=== PATIENT | male | born 1950 | race Caucasian/White ===

== ENCOUNTER → 2024-10-26 15:12 | Outpatient (REF) | payer MEDICARE, BC, SELFPAY | LOC: RAD 15:12 | PROVIDERS: ATTENDING PHYSICIAN Specialist; FAMILY PHYSICIAN Family Medicine | DX: M75.121 Complete rotator cuff tear or rupture of right shoulder, not specified as traumatic (principal) | CPT/HCPCS: 73200 ==

== ENCOUNTER 2024-11-20 10:46 | Inpatient (IN) | payer MEDICARE, BC, SELFPAY ==
--- NOTE | 2024-11-05 13:00 | CM ---
Demographics: confirmed
Living situation: lives independently with .
Support Person Post Operatively:
History of
VN: yes, not currently on service
SNF: No
Outpatient: pending surgical clearance
Has patient purchased required equipment: N/A
PCP: Samina
Pharmacy: [facility]
Post Operative Discharge Plan: Home with family.
[2024-11-13 11:21] LABS: Hematocrit 39.3 % (39.0-52.0); Hemoglobin 12.1 g/dL (13.0-18.0); Mean Corp Hgb Conc. 30.8 g/dL (33.0-37.0); Mean Corpuscular Volume 84.7 fL (80.0-94.0); Platelet Count 230 10^3/uL (130-400); Red Cell Dist. Width 17.8 % (11.5-14.5)
--- NOTE | 2024-11-13 12:04 | CM ---
Addendum entered by Ruthann Romero RN 11/21/24 08:44:
Cm met with patient in room. Plan for patient to be discharge to home. No needs noted.
PLAN: Home no needs.
Original Note:
CM was updated that patient had insurance and billing questions. CM left message for patient.
[2024-11-13 12:08] LABS: ALT (SGPT) 27 U/L (0-50); AST (SGOT) 24 U/L (17-59); Albumin 4.3 g/dl (3.5-5.0); Alkaline Phosphatase 73 U/L (38-126); Blood Urea Nitrogen 25 mg/dl (9-20); Calcium 9.6 mg/dl (8.4-10.2); Carbon Dioxide 29 mmol/L (22-30); Chloride 104 mmol/L (98-107); Glucose 93 mg/dl (70-99); Potassium 4.8 mmol/L (3.5-5.1); Sodium 140 mmol/L (135-145); Total Protein 6.3 g/dl (6.3-8.2); eGFR > 60.00
[2024-11-13 13:54] LABS: Glycohemoglobin (HgbA1c) 5.6 % (4.0-5.6)
[2024-11-13 14:22] VITALS: BMI 21.1
[2024-11-13 17:14] VITALS: BMI 21.1
[2024-11-20] VITALS (18 sets, daily range): BP systolic 101–125; BP diastolic 47–102; PULSE 2–94; O2SAT 90; BMI 45.5
[2024-11-20] MEDS: TYLENOL 1000 MG PO (07:30)
[2024-11-20] MEDS: CELEBREX 200 MG PO (07:30)
[2024-11-20 07:57] LABS: Glucose - Point of Care 116 mg/dl (70-99)
[2024-11-20] MEDS: NORMOSOL-R/PLASMALYTE-A 1000 IV (07:58)
--- NOTE | 2024-11-20 10:34 | W.PN.UPDATE ---
Update Note
Progress Note Update
L shoulder OA w/ rotator cuff arthropathy s/p L Reverse TSA w/ Dr Hogue 11/20/24
DVT prophylaxis - ASA, b/l venous foot pumps
HTN - + parameters - monitor BP
PVCs - monitor on tele
- Continue BB
CHFpEF - reduce hourly IVF rate to prevent fluid overload
- Monitor daily weight, I&Os
- Low sodium diet
- Resume Spironolactone w/ SBP parameters to prevent post-surgical hypotension
COPD
ADA, noncompliant with CPAP
- Monitor O2
- IS
- Standing order Duonebs
- Prednisone taper to start tomorrow as long as BS tolerates
NIDDM, A1c 5.6 - monitor BS
- Add SSI AC, low dose Lantus to accommodate for potential post-surgical BS elevations
- Resume Mounjaro upon d/c
Degenerative disc disease with spinal stenosis - attempt to reduce daily Gabapentin dosing to avoid nephrotoxicity
Morbid obesity, BMI 45.5 - due to elevated BMI, would benefit from abx prophylaxis upon d/c
Hyperlipidemia
RLS
Renal cell adenocarcinoma, metastatic, s/p right nephrectomy, partial left nephrectomy and partial thyroidectomy
Depression
Anxiety
[2024-11-20 10:37] LABS: Glucose - Point of Care 126 mg/dl (70-99)
[2024-11-20] MEDS: DUONEB 3 ML INH ×2 (11:13→20:13)
[2024-11-20] MEDS: NOVOLOG FLEXPEN-MODERATE RESISTANCE SC (11:30)
[2024-11-20] MEDS: NSS 1000 IV (11:50)
[2024-11-20] MEDS: TYLENOL PO (12:00)
[2024-11-20] MEDS: SYNTHROID PO (13:00)
[2024-11-20] MEDS: APRESOLINE PO ×2 (13:00→21:37)
[2024-11-20] MEDS: ALDACTONE PO (15:00)
[2024-11-20 17:03] LABS: Glucose - Point of Care 154 mg/dl (70-99)
--- NOTE | 2024-11-20 17:33 | PTCARENOTE ---
pt admitted to 2S @1300 from PACU to room 2103. admission database and assessment completed as documented. telemetry placed and reading SR in 80's. pt and oriented to room , environment and plan of care with verbalized understanding. care
ongoing.
[2024-11-20] MEDS: ANCEF 5 IV ×2 (17:52→22:58)
[2024-11-20] MEDS: WELLBUTRIN XL (24 hour extended release) 300 MG PO (17:54)
[2024-11-20] MEDS: NEURONTIN 600 MG PO ×2 (17:54→21:38)
[2024-11-20] MEDS: OSCAL CAL 500 500 MG PO (17:54)
[2024-11-20] MEDS: ASPIRIN 325 MG PO (17:55)
[2024-11-20] MEDS: TYLENOL 650 MG PO ×3 (17:55→22:58)
[2024-11-20] MEDS: LIPITOR 20 MG PO (17:55)
[2024-11-20] MEDS: NOVOLOG FLEXPEN-MODERATE RESISTANCE 1 UNITS SC (18:48)
[2024-11-20] MEDS: COREG 6.25 MG PO (19:35)
[2024-11-20] MEDS: COLACE 100 MG PO (19:35)
[2024-11-20] MEDS: SENOKOT 17.2 MG PO (19:35)
[2024-11-20] MEDS: BACTROBAN 2% OINTMENT 1 APPLIC NASAL (19:36)
[2024-11-20] MEDS: PEPCID 20 MG PO (21:37)
[2024-11-20] MEDS: MELATONIN 10 MG PO (21:38)
[2024-11-20] MEDS: MIRAPEX, GENERIC 2 MG PO (21:38)
[2024-11-20] MEDS: CELEXA 40 MG PO (21:40)
[2024-11-20] MEDS: LANTUS 0.05 UNITS SC (22:58)
[2024-11-20 23:47] LABS: Glucose - Point of Care 148 mg/dl (70-99)
[2024-11-21] VITALS (11 sets, daily range): BP systolic 108–138; BP diastolic 56–83; PULSE 2–92; O2SAT 93; BMI 46.1
[2024-11-21] MEDS: TYLENOL PO (04:56)
[2024-11-21 06:22] LABS: Hemoglobin 10.7 g/dL (13.0-18.0)
[2024-11-21 07:14] LABS: Glucose - Point of Care 88 mg/dl (70-99)
[2024-11-21] MEDS: DUONEB 3 ML INH ×3 (07:15→20:04)
[2024-11-21] MEDS: NOVOLOG FLEXPEN-MODERATE RESISTANCE SC ×2 (08:56→12:39)
[2024-11-21] MEDS: ASPIRIN 325 MG PO (08:59)
[2024-11-21] MEDS: DELTASONE 40 MG PO (08:59)
[2024-11-21] MEDS: OSCAL CAL 500 500 MG PO (08:59)
[2024-11-21] MEDS: NEURONTIN 600 MG PO ×3 (08:59→20:48)
[2024-11-21] MEDS: WELLBUTRIN XL (24 hour extended release) 300 MG PO (08:59)
[2024-11-21] MEDS: APRESOLINE 50 MG PO (08:59)
[2024-11-21] MEDS: COREG 6.25 MG PO ×2 (09:00→20:31)
[2024-11-21] MEDS: ALDACTONE 50 MG PO (09:00)
[2024-11-21] MEDS: SENOKOT 17.2 MG PO ×2 (09:00→20:32)
[2024-11-21] MEDS: SYNTHROID 75 MCG PO (09:00)
[2024-11-21] MEDS: TYLENOL 650 MG PO ×4 (09:00→20:31)
[2024-11-21] MEDS: COLACE 100 MG PO ×2 (09:00→20:31)
[2024-11-21] MEDS: BACTROBAN 2% OINTMENT 1 APPLIC NASAL ×2 (09:01→20:33)
--- NOTE | 2024-11-21 10:41 | W.PN.ORTHO ---
Today's Communication / Plan
-
Monitor O2 and weight.
BMP in AM.
D/c when clinically stable.
Assessment
.
Distal Motor Intact: Yes
Dressing:
Clean, dry and intact.
Assessment:
L shoulder OA w/ rotator cuff arthropathy s/p L Reverse TSA w/ Dr Hogue 11/20/24
DVT prophylaxis - ASA, b/l venous foot pumps
Acute hypoxemia, likely multifactorial given GA and PMHx below
- Of note, pt asymptomatic. Lungs CTA b/l. No tachypnea. B/l LE w/ trace sockline edema
- Last assessment, pt 88-92% on room air
- Wean supplemental O2 as tolerated
- Continue IS. Assess SpO2 after IS and while standing
- Prednisone taper to aid in lung perfusion
- Standing order Duonebs
- Will continue BiPAP HS starting during admission for ADA
- Spironolactone given this AM. IV Lasix added due to possible acute CHF. Monitor renal function/lytes
- Minimize opioids as able
- Monitor on continuous pulse ox
HTN - + parameters - monitor BP
PVCs - monitor on tele
- Continue BB
CHFpEF - reduced hourly IVF rate to prevent fluid overload
- Daily weight up 2* holding Spironolactone yesterday d/t hypotension. Resumed today w/ additional IV Lasix. Weight also likely to improve when back on Mounjaro
- Low sodium diet
COPD
ADA, noncompliant with CPAP
- Continue to monitor O2
- IS
- Standing order Duonebs
- Prednisone taper to started today as BS readings stable
NIDDM, A1c 5.6 - monitor BS
- Add SSI AC, low dose Lantus to accommodate for potential post-surgical BS elevations
- Resume Mounjaro upon d/c
Degenerative disc disease with spinal stenosis - attempt to reduce daily Gabapentin dosing to avoid nephrotoxicity
Morbid obesity, BMI 45.5 - due to elevated BMI, would benefit from abx prophylaxis upon d/c
Hyperlipidemia
RLS
Renal cell adenocarcinoma, metastatic, s/p right nephrectomy, partial left nephrectomy and partial thyroidectomy
Depression
Anxiety
Plan
.
Surgery / Date: Neto BLOOD w/ Dr Hogue 11/20/24
DVT Prophylaxis: Aspirin
Activity:
Out of bed.
PT/OT
Discharge Plan: Home
Subjective
.
.:
Patient resting comfortably in his chair.
Acute hypoxemia, likely multifactorial given PMHx. Weaning supplemental O2 as tolerated.
Denies any other new significant complaints.
Vital Signs and Labs
.
Vital Signs and Labs:
Lab Results
11/21/24 06:00
Temp Pulse Resp BP Pulse Ox
98.1 F 83 24 138/78 93
11/21/24 08:15 11/21/24 08:15 11/21/24 08:15 11/21/24 08:15 11/21/24 08:15
Non-invasive Hgb result: 8.4
Physical Exam
-
HEENT: No pallor, cyanosis, or jaundice. Throat clear.
NECK: Supple. No JVD.
RESPIRATORY: Lungs clear to auscultation.
CVS: S1, S2 normal. RRR.�
ABDOMEN: Soft, non-tender. No distension. Morbidly obese.
EXTREMITIES: + LUE sling. Good industrial safety engineer, radial pulses b/l. Able to wiggle fingers b/l. Strength equal, no calf pain with palpation/dorsiflexion. Calves soft.
ELEVATED WORK PLATFORM OPERATOR: AOx3. No focal deficits. content architect grossly intact
[2024-11-21 11:04] LABS: Blood Urea Nitrogen 23 mg/dl (9-20); Calcium 9.1 mg/dl (8.4-10.2); Carbon Dioxide 31 mmol/L (22-30); Chloride 105 mmol/L (98-107); Estimated Creatinine Clearance 123 ml/min; Glucose 135 mg/dl (70-99); Magnesium 2.4 mg/dl (1.6-2.3); Potassium 5.2 mmol/L (3.5-5.1); Sodium 139 mmol/L (135-145); eGFR > 60.00
[2024-11-21 11:26] LABS: Glucose - Point of Care 133 mg/dl (70-99)
[2024-11-21] MEDS: DECADRON 4 MG IV ×2 (13:35→22:22)
[2024-11-21] MEDS: LASIX 40 MG IV (13:35)
[2024-11-21 16:47] LABS: Glucose - Point of Care 184 mg/dl (70-99)
[2024-11-21] MEDS: LIPITOR 20 MG PO (17:31)
[2024-11-21] MEDS: NOVOLOG FLEXPEN-MODERATE RESISTANCE 1 UNITS SC (17:31)
[2024-11-21] MEDS: APRESOLINE PO (20:27)
[2024-11-21] MEDS: CELEXA 40 MG PO (20:47)
[2024-11-21] MEDS: PEPCID 20 MG PO (20:47)
[2024-11-21] MEDS: MIRAPEX, GENERIC 2 MG PO (20:48)
[2024-11-21 21:25] LABS: Glucose - Point of Care 132 mg/dl (70-99)
[2024-11-21] MEDS: LANTUS 0.06 UNITS SC (22:21)
[2024-11-21] MEDS: MELATONIN 10 MG PO (22:43)
[2024-11-22] MEDS: TYLENOL PO ×2 (00:18→05:02)
[2024-11-22 03:00] VITALS: BP 150/69
[2024-11-22 03:48] VITALS: PULSE 2
[2024-11-22 06:00] VITALS: BMI 45.8
[2024-11-22 06:55] LABS: Blood Urea Nitrogen 24 mg/dl (9-20); Calcium 9.5 mg/dl (8.4-10.2); Carbon Dioxide 31 mmol/L (22-30); Chloride 102 mmol/L (98-107); Estimated Creatinine Clearance > 125 ml/min; Glucose 133 mg/dl (70-99); Magnesium 2.1 mg/dl (1.6-2.3); Potassium 5.1 mmol/L (3.5-5.1); Sodium 137 mmol/L (135-145); eGFR > 60.00
[2024-11-22 07:15] VITALS: BP 173/87
[2024-11-22] MEDS: DUONEB 3 ML INH (07:21)
[2024-11-22 07:23] LABS: Glucose - Point of Care 123 mg/dl (70-99)
[2024-11-22] MEDS: NOVOLOG FLEXPEN-MODERATE RESISTANCE SC ×2 (07:25→12:22)
[2024-11-22] MEDS: NEURONTIN 600 MG PO (08:25)
[2024-11-22] MEDS: SENOKOT 17.2 MG PO (08:26)
[2024-11-22] MEDS: ASPIRIN 325 MG PO (08:26)
[2024-11-22] MEDS: APRESOLINE 50 MG PO (08:26)
[2024-11-22] MEDS: OSCAL CAL 500 500 MG PO (08:26)
[2024-11-22] MEDS: WELLBUTRIN XL (24 hour extended release) 300 MG PO (08:26)
[2024-11-22] MEDS: COLACE 100 MG PO (08:26)
[2024-11-22] MEDS: TYLENOL 650 MG PO ×2 (08:27→12:19)
[2024-11-22] MEDS: ALDACTONE 50 MG PO (08:27)
[2024-11-22] MEDS: SYNTHROID 75 MCG PO (08:27)
[2024-11-22] MEDS: COREG 6.25 MG PO (08:27)
[2024-11-22] MEDS: LASIX 40 MG IV (08:28)
[2024-11-22] MEDS: DECADRON 4 MG IV (08:29)
[2024-11-22 11:16] VITALS: BP 123/66
--- NOTE | 2024-11-22 11:32 | W.PN.ORTHO ---
Today's Communication / Plan
-
D/c today since clinically stable.
Assessment
.
Distal Motor Intact: Yes
Dressing:
Clean, dry and intact.
Assessment:
L shoulder OA w/ rotator cuff arthropathy s/p L Reverse TSA w/ Dr Hogue 11/20/24
DVT prophylaxis - ASA, b/l venous foot pumps
Acute hypoxemia, likely multifactorial given GA and PMHx below - resolved by POD 2
- Of note, pt remains asymptomatic. Lungs CTA b/l. No tachypnea. B/l LE w/ trace sockline edema
- Supplemental O2 weaned as tolerated -> now 94-95% on RA.
- Continue IS. SpO2 assessed after IS and while standing
- Prednisone taper to aid in lung perfusion
- Standing order Duonebs during admission
- Advised continuing BiPAP/CPAP upon d/c. Patient has call out to PCP re: new mask for device.
- Spironolactone resumed POD 1. IV Lasix x2 added due to possible acute CHF. Renal function/lytes stable
- Continue to minimize opioids as able
HTN - + parameters - BP elevated this AM but was due for BP meds; expected to improve
PVCs - rhythm stable on tele
- Continue BB
CHFpEF - reduced hourly IVF rate to prevent fluid overload
- Daily weight up POD 1 2* holding Spironolactone DOS d/t hypotension. Resumed w/ additional IV Lasix. Weight showing drastic improvement by POD 2. Weight also likely to improve when back on Mounjaro
- Low sodium diet
COPD
ADA, noncompliant with CPAP
- IS
- Standing order Duonebs while here. Continue Ventolin HFA inhaler prn upon d/c
- Prednisone taper w/ transition back to home dosing. Of note, BS readings stable
NIDDM, A1c 5.6 - monitor BS
- Add SSI AC, low dose Lantus to accommodate for potential post-surgical BS elevations
- Resume Mounjaro upon d/c
Degenerative disc disease with spinal stenosis - attempt to reduce daily Gabapentin dosing to avoid nephrotoxicity
Morbid obesity, BMI 45.5 - due to elevated BMI, would benefit from abx prophylaxis upon d/c
Hyperlipidemia
RLS
Renal cell adenocarcinoma, metastatic, s/p right nephrectomy, partial left nephrectomy and partial thyroidectomy
Depression
Anxiety
Plan
.
Surgery / Date: L Reverse TSA w/ Dr Hogue 11/20/24
DVT Prophylaxis: Aspirin
Activity:
Out of bed.
PT/OT
Discharge Plan: Home
Subjective
.
.:
Patient resting comfortably in his chair.
L shoulder pain tolerable still w/ minimal pain meds.
Oxygen saturations improved. Denies any new complaints.
Eager for d/c today.
Vital Signs and Labs
.
Vital Signs and Labs:
Lab Results
11/21/24 06:00
11/22/24 05:31
Temp Pulse Resp BP Pulse Ox
97.5 F 73 16 123/66 94
11/22/24 11:16 11/22/24 11:16 11/22/24 11:16 11/22/24 11:16 11/22/24 11:16
Non-invasive Hgb result: 11
Physical Exam
-
HEENT: No pallor, cyanosis, or jaundice. Throat clear.
NECK: Supple. No JVD.
RESPIRATORY: Lungs clear to auscultation.
CVS: S1, S2 normal. RRR.�
ABDOMEN: Soft, non-tender. No distension.
EXTREMITIES: + LUE sling. Able to wiggle fingers b/l. Good patient portal concierge, radial pulses b/l. B/l LE strength equal, no calf pain with palpation/dorsiflexion. Calves soft.
VISUAL JOURNALIST: AOx3. No focal deficits. rehabilitation liaison grossly intact
--- NOTE | 2024-11-22 11:48 | W.DS.TRANS ---
DC Summary - Information Security Risk Analyst
-
Discharge Instructions:
Discharge Diagnosis/Procedures L shoulder OA with rotator cuff arthropathy s/p
L Reverse TSA w/ Dr Hogue 11/20/24
Diet Diabetic, Carb Controlled
Additional Diets Adequate hydration, minimize opioids, and wear
TEDs stockings to prevent low blood pressure/
dizziness.
Activity As tolerated
Additional Activity Non-weightbearing left upper extremity
Driving Restrictions Not until seen by your Dr
Bathing Restrictions OK to Shower
Wound Care Leave dressing on until seen by surgeon's office
for follow-up.
Specialty Instructions Weigh Daily
Instructions:
Stand-Alone Forms: SDS Total Shoulder D/C Inst.
Changes to Home Medications: Yes
Discharge Medications:
DC Medications w/original date entered in [employer]
albuterol sulfate 90 mcg/actuation aerosol inhaler (Ventolin HFA) 2 puff inhalation QID PRN sob 11/12/24
alpha lipoic acid 2 tab PO HS Supplement 11/12/24
Held on 11/20/24. Instructions: Resume on 11/27/24.
bupropion HCl 300 mg 24 hr tablet, extended release 300 mg PO DAILY Depression 11/12/24
calcium carbonate (Calcium 600) 600 mg PO DAILY Supplement 11/12/24
carvedilol 6.25 mg tablet 6.25 mg PO BID Heart Failure 11/12/24
citalopram 40 mg tablet 40 mg PO HS Depression 11/12/24
levothyroxine 75 mcg tablet 75 mcg PO DAILY Thyroid 11/12/24
multivitamin with minerals-folic acid 400 mcg-lycopene 370 mcg tablet (One-A-Day Men's 50 Plus) 1 tab PO DAILY Supplement 11/12/24
mupirocin 2 % topical ointment 1 applic topical BID infection prevention #1 tube 11/12/24
pramipexole 1 mg tablet 2 mg PO HS Neurological Condition 11/12/24
simvastatin 40 mg tablet 40 mg PO HS High Cholesterol 11/12/24
tirzepatide 10 mg/0.5 mL subcutaneous pen injector (Mounjaro) 10 mg SC QWEEK Weight loss 11/12/24
doxycycline hyclate 100 mg capsule 100 mg PO BID infection prevention #10 caps 11/13/24
famotidine 20 mg tablet 20 mg PO HS GI prophylaxis #30 tabs 11/13/24
ondansetron 4 mg disintegrating tablet 4 mg PO Q6H PRN n/v #20 tabs 11/13/24
oxycodone 5 mg tablet 5 mg PO Q6H PRN 1 tab moderate pain, 2 tabs severe pain #30 tabs 11/13/24
prednisone 10 mg tablet 40 mg (4 x 10 mg) PO TAPER post-op inflammation #10 tabs 11/13/24
Saccharomyces boulardii 250 mg capsule (Florastor) 250 mg PO BID #10 caps 11/20/24
acetaminophen 325 mg tablet (Tylenol) 650 mg (2 x 325 mg) PO Q4HWA #1 tab 11/20/24
aspirin 325 mg tablet 325 mg PO DAILY #30 tabs 11/20/24
cyclobenzaprine 10 mg tablet 10 mg PO BID PRN muscle spasm #1 tab 11/20/24
docusate sodium 100 mg capsule (Colace) 100 mg PO BID #30 caps 11/20/24
hydralazine 50 mg tablet 50 mg PO BID #1 tab 11/20/24
melatonin 10 mg PO PRN insomnia 11/20/24
polyethylene glycol 3350 17 gram/dose oral powder (Miralax) 4 g PO DAILY PRN constipation #119 grams 11/20/24
sennosides 8.6 mg tablet (senna) 17.2 mg (2 x 8.6 mg) PO BID #30 tabs 11/20/24
furosemide 20 mg tablet (Lasix) 20 mg PO DAILY PRN Weight gain #1 tab 11/22/24
gabapentin 600 mg tablet 600 mg PO TID Neurological Condition #0 tabs 11/22/24
spironolactone 50 mg tablet 50 mg PO DAILY #1 tab 11/22/24
Home Medication Changes
doxycycline hyclate 100 mg capsule 100 mg PO BID infection prevention #10 caps 11/13/24
famotidine 20 mg tablet 20 mg PO HS GI prophylaxis #30 tabs 11/13/24
ondansetron 4 mg disintegrating tablet 4 mg PO Q6H PRN n/v #20 tabs 11/13/24
oxycodone 5 mg tablet 5 mg PO Q6H PRN 1 tab moderate pain, 2 tabs severe pain #30 tabs 11/13/24
prednisone 10 mg tablet 40 mg (4 x 10 mg) PO TAPER post-op inflammation #10 tabs 11/13/24
Saccharomyces boulardii 250 mg capsule (Florastor) 250 mg PO BID #10 caps 11/20/24
acetaminophen 325 mg tablet (Tylenol) 650 mg (2 x 325 mg) PO Q4HWA #1 tab 11/20/24
aspirin 325 mg tablet 325 mg PO DAILY #30 tabs 11/20/24
docusate sodium 100 mg capsule (Colace) 100 mg PO BID #30 caps 11/20/24
polyethylene glycol 3350 17 gram/dose oral powder (Miralax) 4 g PO DAILY PRN constipation #119 grams 11/20/24
sennosides 8.6 mg tablet (senna) 17.2 mg (2 x 8.6 mg) PO BID #30 tabs 11/20/24
gabapentin 600 mg tablet 600 mg PO TID Neurological Condition #0 tabs 11/22/24 - decreased from 1200 mg BID
Pending Results: No
[2024-11-22 12:23] LABS: Glucose - Point of Care 107 mg/dl (70-99)
== END 2024-11-22 14:24 | disposition home or self-care (01) | DRG 483 ==
LOC: 2 SOUTH 10:46
PROVIDERS: Physician Assistant; Physician Assistant Medical; ADMITTING PHYSICIAN Specialist; FAMILY PHYSICIAN Family Medicine; REFERRING PHYSICIAN Internal Medicine Cardiovascular Disease
PROC: 0RRK00Z Replacement of Left Shoulder Joint with Reverse Ball and Socket Synthetic Substitute, Open Approach (ICD-10-PCS; 2024-11-20)
PROC: 5A09357 Assistance with Respiratory Ventilation, Less than 24 Consecutive Hours, Continuous Positive Airway Pressure (ICD-10-PCS; 2024-11-20)
DX: M19.012 Primary osteoarthritis, left shoulder (principal); Z68.42 Body mass index [BMI] 45.0-49.9, adult; I50.22 Chronic systolic (congestive) heart failure; M75.102 Unspecified rotator cuff tear or rupture of left shoulder, not specified as traumatic; E66.01 Morbid (severe) obesity due to excess calories; I11.0 Hypertensive heart disease with heart failure; E78.5 Hyperlipidemia, unspecified; I49.3 Ventricular premature depolarization; F32.A Depression, unspecified; F41.9 Anxiety disorder, unspecified; E11.9 Type 2 diabetes mellitus without complications; G47.33 Obstructive sleep apnea (adult) (pediatric); J44.9 Chronic obstructive pulmonary disease, unspecified; M48.00 Spinal stenosis, site unspecified; G25.81 Restless legs syndrome; R09.02 Hypoxemia; Z96.653 Presence of artificial knee joint, bilateral; Z96.643 Presence of artificial hip joint, bilateral; Z98.1 Arthrodesis status; Z79.890 Hormone replacement therapy; Z90.5 Acquired absence of kidney; Z79.52 Long term (current) use of systemic steroids; Z79.85 Long-term (current) use of injectable non-insulin antidiabetic drugs; Z85.528 Personal history of other malignant neoplasm of kidney; Z87.891 Personal history of nicotine dependence; Z91.199 Patient's noncompliance with other medical treatment and regimen due to unspecified reason
CPT/HCPCS: 36415; 73020; 80048; 80053; 82962; 83036; 83735; 83880; 85018; 85027; 87070; 93005; 94640; 94660; 97167; 97530; 97535; C1713; C1776